=== PATIENT | male | born 2000 | race Caucasian/White ===

== ENCOUNTER 2024-04-17 13:18 | Emergency (ER) | payer MEDICAID, OTHER ==
[~2024-04-17] VITALS: Ht 188 cm; Wt 79.4 kg
[2024-04-17 14:48] VITALS: BP 124/67; TEMP 98.2; O2SAT 97
== END 2024-04-17 14:48 | disposition home or self-care (01) ==
LOC: ER 13:32
DX: S90.32XA Contusion of left foot, initial encounter (principal); S90.31XA Contusion of right foot, initial encounter; M25.512 Pain in left shoulder; Y04.0XXA Assault by unarmed brawl or fight, initial encounter; Y93.89 Activity, other specified; Y92.89 Other specified places as the place of occurrence of the external cause; Y99.8 Other external cause status
CPT/HCPCS: 73030-TC; 73610-TC; 73630-TC